=== PATIENT | female | born 1970 | race Caucasian/White ===

== ENCOUNTER 2017-02-15 13:10 | Emergency (ER) | payer OTHER ==
[~2017-02-15 13:10] MED LIST: FLAGYL500 MG PO; K-DUR20 MEQ PO; PROZAC20 MG PO; TYLENOL325 MG PO; ZANTAC150 MG PO
== END 2017-02-15 14:40 | disposition home or self-care (01) ==
LOC: ER 13:10
DX: N93.8 Other specified abnormal uterine and vaginal bleeding (principal); K21.9 Gastro-esophageal reflux disease without esophagitis; R10.32 Left lower quadrant pain; I10 Essential (primary) hypertension; E78.5 Hyperlipidemia, unspecified; F17.210 Nicotine dependence, cigarettes, uncomplicated; Z98.51 Tubal ligation status
CPT/HCPCS: 36415